=== PATIENT | female | born 1990 | race American Indian/Alaskan Native ===

== ENCOUNTER 2021-02-11 19:06 | Outpatient (CLI) | payer MEDICAID ==
[2021-02-11 20:14] VITALS: BP 120/59
== END 2021-02-11 21:10 | disposition home or self-care (01) ==
LOC: TRG 19:06
PROVIDERS: ATTEND Obstetrics & Gynecology
DX: Z34.93 Encounter for supervision of normal pregnancy, unspecified, third trimester (principal); Z3A.40 40 weeks gestation of pregnancy
CPT/HCPCS: 59025